=== PATIENT | female | born 1935 | race Caucasian/White ===

== ENCOUNTER 2025-01-17 04:10 | Emergency (ER) | payer MEDICARE, SELFPAY ==
[2025-01-17] VITALS (7 sets, daily range): BP systolic 124–153; BP diastolic 43–88; PULSE 71–100; RESP 15–18; TEMP 36.5–36.8; O2SAT 96–99; BMI 24.1
--- NOTE | ~2025-01-17 | CT_ITS ---
CLINICAL HISTORY: Status post fall 3 weeks ago occult fracture??? CT pelvis without contrast Comparison: None provided Findings: There is artifact related to the bilateral hip prostheses. Pelvic contents unremarkable. Normal appendix. There is a fracture of the left ischial tuberosity. Bony structures are otherwise intact. Components of the prostheses are intact and normally aligned. IMPRESSION: Left ischial tuberosity fracture This document has been electronically signed by: Aroldo Gallardo MD on 01/17/2025 08:10:46
--- NOTE | ~2025-01-17 | XR_ITS ---
CLINICAL HISTORY: s p fall 3 views lumbar spine Comparison: None provided Findings: Mild levoscoliosis. 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 No evidence of fracture or acute malalignment. Impression: Chronic changes. No definite acute fracture. This document has been electronically signed by: Ever Kelley MD on 01/17/2025 05:37:05
--- NOTE | 2025-01-17 04:18 | PC.NURSE ---
pt biba from home, a&ox4, respirations even and unlabored. pt reports x3 weeks ago she had a fall and since then she has had lower back pain that has not subsided. pt reports she has been taking tylenol with no relief. pt states she was seen at previous hospital and discharged. pt states at this time she is unable to walk and she lives on the second floor.
--- NOTE | 2025-01-17 04:34 | ED.BACK ---
HPI - Back Pain/Injury General Chief Complaint: Back Pain/Injury Stated Complaint: LOWER BACK PAIN Time Seen by Provider: 01/17/25 04:19 Source: patient Mode of arrival: EMS Limitations: no limitations History of Present Illness ED Provider: HPI Narrative: Patient apparently fell about 3 weeks ago after she tripped on something at home since then been having pain in the lower back was seen by orthopedic last week and diagnose with sciatica and given gabapentin patient comes here as pain is not getting better denied any spinal pain pain is more localized to the left gluteal area no paresthesia no weakness of the legs no other injuries patient has had the x-ray of the pelvis at PCP office which was negative for fracture Related Data Previous Rx's ?Medication ?Instructions ?Recorded tramadol 50 mg tablet 50 mg PO Q8-10H PRN pain #20 tabs 01/17/25 Allergies Allergy/AdvReac Type Severity Reaction Status Date / Time No Known Allergies Allergy Verified 01/17/25 04:17 Review of Systems Review of Systems: Yes all other systems are reviewed and are negative [facility] Social History Social History Smoked in Last 30 Days: No Use of substances other than those prescribed or required for medical reasons: No Advance Directives: No Advance Directives Information Provided: No Do you have a plan to hurt others: No Plan Physical Exam Vital Signs: Vital Signs: Last Vital Signs Temp 97.8 F 01/17/25 06:24 Pulse 81 01/17/25 06:24 Resp 16 01/17/25 06:24 BP 130/43 L 01/17/25 06:24 Pulse Ox 97 01/17/25 06:24 O2 Del Method Room Air 01/17/25 06:24 BMI result Body Mass Index 24.1 Appearance: Alert. Oriented X3. No acute distress. Frail Eyes: PERRLA, No Nystagmus ENT: Pharynx normal. Oral Mucosa moist Neck: Normal inspection. Neck supple. CVS: Normal heart rate and rhythm. Pulses normal. Respiratory: No respiratory distress. Equal air entry bilateral, no wheezing/rales/rhonchi Abdomen: Soft and nontender. Bowel sounds are present, no mass palpable, no CVA tenderness Skin: Skin warm and dry. Normal skin color. Normal skin turgor. Extremities: No lower extremity edema. No calf tenderness Back: No midline lumber tenderness with significant scoliosis left sciatic notch tenderness. SLR negative bilaterally Neuro: Oriented X 3. No motor deficit. No sensory deficit.No cerebellar signs , cranial nerves II-XII intact Medications Administered Discontinued Medications Generic Name Dose Route Start Last Admin Trade Name Freq PRN Reason Stop Dose Admin Oxycodone HCl 5 mg 01/17/25 04:27 01/17/25 04:58 Oxycodone Hcl Immed Release 5 Mg Tablet PO 01/17/25 04:28 5 mg ONCE ONE Administration Medical Decision Making Medical Decision Making [facility] Narrative: Patient's left sciatic pain for last 3 weeks followed by orthopedics x-ray negative for pelvic fracture at the doctor's office and x-ray for lumbar spine is also negative your will discharge patient home advised to follow up with Orthopedic will give tramadol for breakthrough pain Of the time of discharge patient is unable to ambulate because of increasing pain patient has had a x-ray done of the pelvis at the doctor's office but which was negative for fracture as patient has a increasing pain for last few days will do CT scan of the pelvis to rule out occult fracture. Patient will be sent to rehab case consulted with case management Lab Data [facility] Lab Attestation statement: I reviewed the patient's lab results. 01/17/25 06:48 01/17/25 06:48 Labs: Lab Results 01/17/25 Range/Units 06:48 WBC 11.5 H (4.8-10.8) X10*3/uL RBC 4.20 (4.20-5.50) X10*6/uL Hgb 13.0 (12.0-16.0) g/dl Hct 39.1 (37.0-47.0) % MCV 93.1 (80.0-98.0) fL MCH 31.0 (27.0-33.0) pg MCHC 33.2 (31.0-35.0) g/dl RDW 14.2 (11.0-16.0) % Plt Count 380 (160-400) X10*3/uL MPV 8.6 L (9.4-12.3) fL Immature Gran % (Auto) 0.7 H (0.0-0.4) % Neut % (Auto) 75.4 H (45-73) % Lymph % (Auto) 13.6 L (20-40) % Mora % (Auto) 9.9 (2-11) % Eos % (Auto) 0.2 (0-4) % Baso % (Auto) 0.2 (0-2) % Lymph # (Auto) 1.6 (1.2-4.9) X10*3/uL Mora # (Auto) 1.1 (0.1-1.2) X10*3/uL Eos # (Auto) 0.0 (0.0-0.4) X10*3/uL Baso # (Auto) 0.0 (0.0-0.2) X10*3/uL Abs Immat Gran (auto) 0.08 H (0.00-0.03) X10*3/uL Absolute Neuts (auto) 8.6 H (2.0-8.3) x10*3/uL Absolute Nucleated RBC 0.000 (0.0-0.012) X10*3/uL Nucleated RBC % (auto) 0.0 (0.0-0.2) /100WBC Sodium 141 (135-145) mmol/L Potassium 4.0 (3.3-5.1) mmol/L Chloride 104 (96-108) mmol/L Carbon Dioxide 28 (22-29) mmol/L Anion Gap 13 (12-20) BUN 21 H (9-16) mg/dL Creatinine 0.72 (0.5-1.4) mg/dL Estim Creat Clear Calc 43.5 Estimated GFR > 60 Random Glucose 94 (60-115) mg/dL Calcium 8.9 (8.4-10.2) mg/dL Total Bilirubin 0.5 (0.0-1.0) mg/dL AST 24 (5-31) U/L ALT 20 (0-31) U/L Alkaline Phosphatase 94 (39-117) U/L Total Protein 6.6 (6.5-8.0) g/dL Albumin 3.7 (3.5-5.0) g/dL Independent Interpretation I performed an independent interpretation of an: Plain X-Ray Radiology Impression Discussion of test interpretation with radiology: I have reviewed the radiologist's reading. Discharge Plan Discharge Clinical Impression: Left sided sciatica Patient Disposition: Still a Patient Instructions: Sciatica (ED) Prescriptions: New tramadol 50 mg tablet 50 mg PO Q8-10H PRN (Reason: pain) Qty: 20 0RF Print Language: Sudanese
[2025-01-17] MEDS: oxyCODONE HCl Immed Release 5 MG TABLET PO ×4 (04:58→20:27)
--- NOTE | 2025-01-17 05:00 | PC.NURSE ---
pt medicated per aug, tolerated whole well with water
--- NOTE | 2025-01-17 06:44 | PC.NURSE ---
attempted to stand pt up out of bed, pt unable to stand and right leg gave out. pt denied pain but states she can not walk. aware and at bedside
[2025-01-17 06:53] LABS: MANUAL DIFF FLAG NO
[2025-01-17 06:57] LABS: Hematocrit 39.1 % (37.0-47.0); Hemoglobin 13.0 g/dl (12.0-16.0); Imm Gran Abs Auto 0.08 X10*3/uL (0.00-0.03); Imm Gran Pct Auto 0.7 % (0.0-0.4); Lymphocytes Absolute Auto 1.6 X10*3/uL (1.2-4.9); Mean Corpuscular HGB Conc 33.2 g/dl (31.0-35.0); Mean Corpuscular Hemoglobin 31.0 pg (27.0-33.0); Mean Corpuscular Volume 93.1 fL (80.0-98.0); NRBC Abs Auto 0.000 X10*3/uL (0.0-0.012); NRBC Pct Auto 0.0 /100WBC (0.0-0.2); Platelet Count 380 X10*3/uL (160-400); Red Blood Count 4.20 X10*6/uL (4.20-5.50); White Blood Count 11.5 X10*3/uL (4.8-10.8)
[2025-01-17 07:11] LABS: Alanine Aminotransferase 20 U/L (0-31); Albumin Level 3.7 g/dL (3.5-5.0); Alkaline Phosphatase 94 U/L (39-117); Anion Gap 13 (12-20); Aspartate Amino Transferase 24 U/L (5-31); Blood Urea Nitrogen 21 mg/dL (9-16); Calcium 8.9 mg/dL (8.4-10.2); Carbon Dioxide 28 mmol/L (22-29); Chloride 104 mmol/L (96-108); Creatinine Clr Calc Pharmacy 43.5; Estimated Glomerular Filt Rate > 60; Potassium 4.0 mmol/L (3.3-5.1); Sodium 141 mmol/L (135-145); Total Protein 6.6 g/dL (6.5-8.0)
--- NOTE | 2025-01-17 07:25 | PC.NURSE ---
patient to CT at this time.
--- NOTE | 2025-01-17 09:01 | PC.NURSE ---
patient verbalizing increase in pain - requesting medication. provider notified/aware. medication administered per provider order. effectiveness pending. swabs obtained/sent to lab. plan of care ongoing. call christiansen placed within reach.
[2025-01-17 09:47] LABS: Resp Syncy Virus RNA Qual PCR NEGATIVE (Negative); SARS COV2 PCR INHOUSE NEGATIVE (Negative)
--- NOTE | 2025-01-17 10:17 | PC.NURSE ---
report given to BRITTNEY Ames in overflow at this time.
--- NOTE | 2025-01-17 13:10 | MHC.CM.ED ---
Received case management consult overnight. patient came to the ER due to back pain. Found to have a left ischial tuberosity fracture. Per Dr Hernandez, no surgery and will be medically managed. Physical therapy eval ordered and pending. Met with patient in regards to discharge planning. Patient lives alone, ambulates independently and had no services prior to coming to the ER. Patient still drives at baseline. PCP verified. Patient aware physical therapy eval is pending and anticipate rehab will be recommended. Patient has been to [facility] in the past. But is requesting referral to [facility]. Agreeable to [facility] as 2nd choice. Referrals made via [facility]. Continue to monitor for d/c needs.
--- NOTE | 2025-01-17 14:39 | PC.NURSE ---
med rec done and completed by provider, oxycodone added as prn for pain, medicated for pain, pt has little pain at rest but pain with any movement, states she does not take gabapentin any more as it didn't help, had filled it 10 days ago. AMANDA Diaz aware and informed. pt updated as to care plan and diagnosis
[2025-01-17] MEDS: Latanoprost 0.005 % Ophth Sol 2.5 ML DROPS 1 DROP EYE-BOTH (23:42)
[2025-01-18] MEDS: oxyCODONE HCl Immed Release 5 MG TABLET PO ×3 (02:10→19:34)
[2025-01-18 08:03] VITALS: BP 128/60; PULSE 102; RESP 18; TEMP 36.6; O2SAT 96
[2025-01-18] MEDS: Metoprolol Succinate ER 25 MG TAB.ER.24H PO (09:16)
--- NOTE | 2025-01-18 11:53 | PHA.MEDREC ---
Addendum entered by Bea Xiong RPh 01/18/25 12:08: [facility] reviewed Original Note: Pharmacy Consult ? Medication Reconciliation Pharmacy has completed the medication reconciliation. Spoke with patient to confirm. She is no longer taking gabapentin, stopped taking a couple weeks ago, removed from med list. She takes alendronate on but did not take it last week. She was on a methylprednisolone dose pack and finished it.
[2025-01-18 13:20] VITALS: BP 129/52; PULSE 121; RESP 20; TEMP 36.3; O2SAT 95
[2025-01-18 14:26] VITALS: BP 138/61; PULSE 122; RESP 18; TEMP 37.3; O2SAT 94
[2025-01-18 19:20] VITALS: BP 117/53; PULSE 129; RESP 15; TEMP 36.6; O2SAT 95
--- NOTE | 2025-01-18 19:22 | PC.NURSE ---
this rn assumed care of pt, pt resting in bed, reports 8/10 lower back pain, prn medications offered at this time, alexx shields aware of tachycardia.
--- NOTE | 2025-01-18 19:52 | ECG_ITS ---
Test Reason : TACHYCARDIA Blood Pressure : */* mmHG Vent. Rate : 104 BPM Atrial Rate : 104 BPM P-R Int : 124 ms QRS Dur : 68 ms QT Int : 314 ms P-R-T Axes : 39 -3 31 degrees QTcB Int : 412 ms Sinus tachycardia Minimal voltage criteria for LVH, may be normal variant ( R in aVL ) Borderline ECG No previous ECGs available Referred By: Ariana Bethea Electronically Signed By: Enrique Orona
--- NOTE | 2025-01-18 19:52 | PC.NURSE ---
alexx shields contacted via phone at this time, plan for ekg at pt remains tachyardic. charge coordinator aware and awaiting machine to be brought to overflow.
[2025-01-18] MEDS: Latanoprost 0.005 % Ophth Sol 2.5 ML DROPS 1 DROP EYE-BOTH (20:42)
[2025-01-18 20:56] VITALS: PULSE 110; RESP 15; O2SAT 98
[2025-01-19 00:23] VITALS: BP 128/65; PULSE 100; RESP 18; TEMP 36.9; O2SAT 94
[2025-01-19] MEDS: oxyCODONE HCl Immed Release 5 MG TABLET PO ×5 (00:23→19:57)
[2025-01-19 05:35] VITALS: BP 118/72; PULSE 111; RESP 18; TEMP 36.7; O2SAT 92
[2025-01-19 07:50] VITALS: BP 118/72; PULSE 111
[2025-01-19] MEDS: Metoprolol Succinate ER 25 MG TAB.ER.24H PO (07:50)
[2025-01-19 09:24] VITALS: BP 118/72; PULSE 111; O2SAT 92
--- NOTE | 2025-01-19 10:52 | MHC.CM.ED ---
Addendum entered by Manuela Cummings 01/19/25 14:59: Spoke with patient about HCP. Patient's niece, Fransisca, has a copy of the HCP. T/W attempted to reach Fransisca via telephone at [phone]. Left voicemail requesting copy of HCP and return telephone call. Original Note: Patient remains in ER overflow. Physical therapy eval completed. Rehab is recommended. Choices: 1) [facility] 2)[facility]. Clinical updates sent to both facilities. [facility] requesting OT eval. Ordered by Ashley PATEL. Continue to monitor for d/c needs.
[2025-01-19 14:00] VITALS: BP 121/54; PULSE 95; RESP 17; TEMP 36.4; O2SAT 93
[2025-01-19] MEDS: Latanoprost 0.005 % Ophth Sol 2.5 ML DROPS 1 DROP EYE-BOTH (19:58)
[2025-01-19 21:00] VITALS: BP 110/54; PULSE 90; RESP 16; TEMP 36.6; O2SAT 95
[2025-01-20] MEDS: oxyCODONE HCl Immed Release 5 MG TABLET PO ×4 (01:16→18:53)
[2025-01-20 06:00] VITALS: BP 119/55; PULSE 85; RESP 14; TEMP 36.9; O2SAT 94
[2025-01-20] MEDS: Metoprolol Succinate ER 25 MG TAB.ER.24H PO (07:40)
--- NOTE | 2025-01-20 09:56 | MHC.CM.ED ---
Patient remains in ER overflow. Copy of HCP received from Fransisca. OT eval and updated PT eval sent to [facility]. Waiting to hear if [facility] will authorize. Continue to monitor for d/c needs.
[2025-01-20 11:36] VITALS: BP 137/53; PULSE 92; RESP 17; TEMP 36.5; O2SAT 96
[2025-01-20 18:40] VITALS: BP 140/68; PULSE 106; RESP 20; TEMP 36.6; O2SAT 94
--- NOTE | 2025-01-20 18:54 | MHC.EDTECH ---
Pt was 1 assisted out of bed to commode for urine output. Pt was placed back to bed with 1 assistance. Pt was placed on purewick for night time upon request, boosted up in bed, blankets given, call christiansen within reach. RN aware
[2025-01-20] MEDS: Latanoprost 0.005 % Ophth Sol 2.5 ML DROPS 1 DROP EYE-BOTH (20:08)
[2025-01-21] MEDS: oxyCODONE HCl Immed Release 5 MG TABLET PO ×4 (00:27→20:06)
[2025-01-21 01:03] VITALS: BP 114/50; PULSE 91; RESP 14; TEMP 36.6; O2SAT 97
[2025-01-21 06:00] VITALS: BP 123/74; PULSE 94; RESP 16; TEMP 36.1; O2SAT 98
[2025-01-21 09:49] VITALS: BP 134/56; PULSE 89
[2025-01-21] MEDS: Metoprolol Succinate ER 25 MG TAB.ER.24H PO (09:49)
[2025-01-21 14:00] VITALS: BP 113/55; PULSE 94; RESP 17; TEMP 36.3; O2SAT 97
[2025-01-21 15:59] LABS: Glucose, Whole Blood 108 mg/dL (60-115)
[2025-01-21 20:05] VITALS: BP 111/89; PULSE 108; RESP 20; TEMP 36.9; O2SAT 98
[2025-01-21] MEDS: Latanoprost 0.005 % Ophth Sol 2.5 ML DROPS 1 DROP EYE-BOTH (20:10)
[2025-01-22 02:09] VITALS: BP 122/54; PULSE 95; RESP 14; TEMP 36.8; O2SAT 95
[2025-01-22] MEDS: oxyCODONE HCl Immed Release 5 MG TABLET PO ×5 (02:13→23:09)
--- NOTE | 2025-01-22 07:55 | PC.NURSE ---
patient alert and oriented x4. had Oxycodone with good effect for L hip pain. Pt slept well with no s/s distress.
[2025-01-22 08:11] VITALS: BP 134/57; PULSE 92
[2025-01-22] MEDS: Metoprolol Succinate ER 25 MG TAB.ER.24H PO (08:11)
[2025-01-22 09:35] VITALS: BP 134/57; PULSE 92; RESP 14; TEMP 36.6; O2SAT 96
--- NOTE | 2025-01-22 11:11 | PC.NURSE ---
Pt OOB to chair with 1 assist; reports moderate pain relief with meds gv; awaiting STC placement at this time; A+OX3/pleasant
[2025-01-22 14:00] VITALS: BP 123/51; PULSE 96; RESP 16; TEMP 37.1; O2SAT 97
--- NOTE | 2025-01-22 14:37 | MHC.CM.ED ---
Patient remains in ER. Still waiting from a response about auth for [facility]. Patient aware. Cotninue to monitor for d/c needs.
[2025-01-22 20:51] VITALS: BP 119/53; PULSE 92; RESP 18; TEMP 36.9; O2SAT 98
[2025-01-22] MEDS: Latanoprost 0.005 % Ophth Sol 2.5 ML DROPS 1 DROP EYE-BOTH (21:42)
[2025-01-23 06:00] VITALS: BP 117/52; PULSE 88; RESP 18; TEMP 36.7; O2SAT 97
[2025-01-23] MEDS: oxyCODONE HCl Immed Release 5 MG TABLET PO ×3 (06:01→19:13)
[2025-01-23 08:49] VITALS: BP 114/66; PULSE 91; RESP 16; O2SAT 99
[2025-01-23 08:51] VITALS: BP 114/66; PULSE 91
[2025-01-23] MEDS: Metoprolol Succinate ER 25 MG TAB.ER.24H PO (08:51)
--- NOTE | 2025-01-23 09:50 | MHC.CM.ED ---
Addendum entered by Manuela Cummings 01/23/25 15:09: Patient aware. Original Note: Received notification from Kaia at [facility] that [facility] declined acute rehab level of care. But Chayo from [facility] stated they would approve SNF level of care. Waiting to hear from [facility] if they can still offer a bed. Continue to monitor for d/c needs.
--- NOTE | 2025-01-23 15:12 | PC.NURSE ---
Pt has remained A&O X4 through shift. Turn and repos. self in bed. Tolerating Po well NAD NO complaints VSS
--- NOTE | 2025-01-23 16:37 | MHC.CM.ED ---
Addendum entered by Mary Ellen Yi 01/23/25 16:52: Mya Barajas has requested that patient arrive tomorrow 01/24 at 10am. Booking has been changed with [facility]. Primary RN, provider and patient aware. Original Note: [facility] received insurance auth. Pt has [facility]. BLS booked with [facility] next available-6pm
[2025-01-23] MEDS: Latanoprost 0.005 % Ophth Sol 2.5 ML DROPS 1 DROP EYE-BOTH (19:14)
[2025-01-23 19:27] VITALS: BP 129/44; PULSE 77; RESP 18; TEMP 36.7; O2SAT 95
[2025-01-24] MEDS: oxyCODONE HCl Immed Release 5 MG TABLET PO ×2 (02:22→08:31)
[2025-01-24 05:55] VITALS: BP 112/53; PULSE 86; RESP 14; TEMP 36.8; O2SAT 96
--- NOTE | 2025-01-24 08:30 | MHC.EDTECH ---
pt wash washed up (lotion applied) with complete bed change. pt ate 25% of her breakfast and teeth was brushed. pt was 1 assist with a walker to the recliner.
[2025-01-24] MEDS: Metoprolol Succinate ER 25 MG TAB.ER.24H PO (08:32)
--- NOTE | 2025-01-24 08:48 | PC.NURSE ---
called facility multiple times to give report but no answer.
--- NOTE | 2025-01-24 10:19 | MHC.EDTECH ---
pt voided 400ml (purwick)
== END 2025-01-24 10:19 ==
PROVIDERS: Emergency Provider Internal Medicine; PCP Internal Medicine
DX: M54.42 Lumbago with sciatica, left side (principal); R00.0 Tachycardia, unspecified; S32.602A Unspecified fracture of left ischium, initial encounter for closed fracture; W01.0XXA Fall on same level from slipping, tripping and stumbling without subsequent striking against object, initial encounter; Z03.818 Encounter for observation for suspected exposure to other biological agents ruled out; Y93.9 Activity, unspecified; Y92.039 Unspecified place in apartment as the place of occurrence of the external cause; Y99.9 Unspecified external cause status
CPT/HCPCS: 36415; 72100; 72192; 80053; 82947; 85025; 87637; 93005; 97116; 97161; 97165; 99285

== ENCOUNTER → 2025-01-17 04:27 | Outpatient (BNV) | payer MEDICARE, SELFPAY | PROVIDERS: Emergency Provider Internal Medicine; PCP Internal Medicine; Visit Provider Radiology Vascular & Interventional Radiology | DX: S32.602A Unspecified fracture of left ischium, initial encounter for closed fracture (principal); M54.50 Low back pain, unspecified; W19.XXXA Unspecified fall, initial encounter | CPT/HCPCS: 72100; 72192 ==

== ENCOUNTER → 2025-01-18 19:52 | Outpatient (BNV) | payer MEDICARE, SELFPAY | PROVIDERS: Emergency Provider Internal Medicine; PCP Internal Medicine; Visit Provider Internal Medicine Cardiovascular Disease | DX: R00.0 Tachycardia, unspecified (principal) | CPT/HCPCS: 93010 ==